=== PATIENT | male | born 1970 | race Asian ===

== ENCOUNTER 2018-12-03 08:45 | Day surgery (SDC) | payer BC ==
[2018-12-02 15:56] VITALS: BMI 22.1
[2018-12-03] MEDS ORDERED: DEXAMETHASONE SOD PHOSPHATE/PF 10 MG/ML SDV ONE (11:45)
[2018-12-03] MEDS ORDERED: MIDAZOLAM HCL 2 MG/2 ML SINGLE DOSE VIAL ONE ×3 (11:45→12:26)
[2018-12-03] MEDS ORDERED: BUPIVACAINE HCL/PF (5 MG/ML) 30 ML VIAL IJ ONE (11:46)
[2018-12-03] MEDS ORDERED: PROPOFOL 20 ML ONE ×2 (12:26)
[2018-12-03] MEDS ORDERED: ONDANSETRON 4 MG/2 ML VIAL ONE (12:27)
[2018-12-03] MEDS ORDERED: KETOROLAC TROMETHAMINE 30 MG/1 ML VIAL ONE (12:27)
[2018-12-03] MEDS ORDERED: DEXAMETHASONE SOD PHOSPHATE 4 MG/1 ML VIAL ONE (12:27)
[2018-12-03] MEDS ORDERED: ceFAZolin SODIUM 1 GM VIAL ONE (12:27)
[2018-12-03] MEDS ORDERED: oxyCODONE HCL 5 MG TABLET PO PRN ×2 (14:14)
[2018-12-03] MEDS ORDERED: ONDANSETRON 4 MG/2 ML VIAL IVPUSH PRN (14:14)
[2018-12-03] MEDS ORDERED: PROMETHAZINE HCL 25 MG/1 ML VIAL IVPUSH PRN (14:14)
--- NOTE | 2018-12-03 14:21 | OP ---
Operative Note - Note: Operative Date: 12/03/18 Pre-Operative Diagnosis: Right achilles tendon rupture Operation: R achilles tenodon repair Implants: swivelock x2 Post-Operative Diagnosis: Same as Pre-op Surgeon: Inder Mike Mat Machine Tender: Margie Heredia Anesthesiologist/MARKETING PR INTERN: Darien Sampson Anesthesia: Spinal Operative Report Dictated: Yes
--- NOTE | 2018-12-03 14:26 | OP ---
DATE OF OPERATION: DATE OF DICTATION: 12/03/2018 PREOPERATIVE DIAGNOSIS: Right Achilles tendon rupture. POSTOPERATIVE DIAGNOSIS: Right Achilles tendon rupture. PROCEDURE: Right Achilles tendon repair. SURGEON: Inder Spears MD IN HOME SALES CONSULTANT: NORI Banks whose skilled full assistance was necessary for the safe and timely performance of this procedure. Ms. Heredia was able to help provide limb positioning, retraction, assist in suturing the tendon percutaneously as well as the insertion of orthopaedic fixation hardware while the neurosurgical nurse was occupied manipulating instruments on the back table. ANESTHESIA: Regional plus spinal. POSTOPERATIVE CONDITION: Stable. COMPLICATIONS: None. IMPLANTS: Arthrex SwiveLock x2. INDICATIONS: This is a pleasant 48-year-old gentleman who was playing soccer when he ruptured his Achilles tendon. Treatment options including nonoperative versus operative management were reviewed. Operative risks were reviewed in detail including bleeding, infection, neurovascular injury, need for further surgery, postoperative pain and stiffness, re-rupture. We reviewed the postoperative rehabilitation protocol. I reviewed medical risks such as heart attack, stroke, DVT, PE, and . I discussed the use of perioperative antibiotic and DVT prophylaxis. I addressed all of the patient's questions. He voiced understanding and elected to proceed. DESCRIPTION OF PROCEDURE: The patient was brought to the operating room after administration of a regional block in the preoperative holding area. He was then given spinal anesthetic and then placed into the prone position careful to pad all bony prominences. The right lower extremity was then prepped and draped in the usual sterile fashion. A preoperative dose of antibiotics was given, and the usual time-out procedure was performed. The leg was examined demonstrating positive Esparza test and increased dorsal resting angle of the ankle with the knee flexed. Incision was planned out over a palpable gap in the Achilles tendon. This was carried down through skin to subcutaneous tissue. Blunt spreading was used to expose the peritenon. The peritenon was then split in line with the limb exposing the Achilles tendon rupture. The proximal end was identified and grasped with an Allis clamp. Finger dissection was used about the tendon to free it from any adhesions to the surrounding peritenon, which had occurred. The PARS device was now inserted in the peritenon. Care was taken to ensure that it entered fully. The limbs were then set at the appropriate lengths to allow for the Achilles tendon to meet in the middle. Rongeur was used to debride the end of the Achilles tendon of any fibrous tissue. The device was now held slightly elevated. This held perfectly parallel to the floor. The needles were then passed percutaneously passing the sutures across the tendon in sequential fashion. While the needles were being passed, a finger was held on top of the tendon to ensure that the needles were passed into the appropriate tissue. The suture passing was completed, and the PARS stick was removed pulling the sutures into the tendon sheath. The loop sutures were then used to pass through the locking stitches securing the grasp on the tendon. Each suture was individually tested confirming adequate purchase. Attention was now turned over to the calcaneus. Two stab incisions were made with a 15 blade down to the level of the bone. Two drill holes were made and tapped. The banana lasso was then used to retrieve the suture limbs both medially and laterally through the distal stump of the Achilles tendon. The sutures were now tensioned for resting dorsiflexion. Both anchors were inserted at even tension. The excess sutures were now cut. The wounds were irrigated. The peritenon was closed with 2-0 Vicryl. The subcutaneous tissue was approximated using 2-0 Vicryl. The skin was closed using 4-0 nylon vertical mattress sutures. Sterile dressings were placed. The patient was placed into a well-padded cast. He was transferred to the recovery room in stable condition. INDER SPEARS M.D. [id number]
[2018-12-03 16:51] VITALS: TEMP 97.6
[2018-12-03 19:56] VITALS: BP 119/70; PULSE 72
== END 2018-12-03 19:50 | disposition home or self-care (01) ==
LOC: FASU 08:45
PROVIDERS: ATTEND Orthopaedic Surgery Sports Medicine
PROC: 0LQN0ZZ Repair Right Lower Leg Tendon, Open Approach (ICD-10-PCS; principal; 2018-12-03 12:42)
DX: S86.011A Strain of right Achilles tendon, initial encounter (principal); X58.XXXA Exposure to other specified factors, initial encounter; Y93.9 Activity, unspecified; Y92.9 Unspecified place or not applicable
CPT/HCPCS: 94760